=== PATIENT | female | born 1990 | race Caucasian/White ===

== ENCOUNTER 2016-12-06 09:38 | Emergency (ER) | payer OTHER ==
[~2016-12-06] VITALS: Ht 172.7 cm; Wt 79.1 kg
[2016-12-06 09:47] VITALS: TEMP 98.4
[2016-12-06] MEDS ORDERED: NECON 1/35 35 M1 TAB PO (09:50)
[2016-12-06 10:26] VITALS: BP 131/84; PULSE 65
[2016-12-06] MEDS ORDERED: ZOFRAN ODT4 MG PO (11:21)
[2016-12-06] MEDS ORDERED: ANTIVERT 25MG25 MG PO (11:21)
== END 2016-12-06 11:36 | disposition home or self-care (01) ==
LOC: COL.ER 09:38
DX: R42 Dizziness and giddiness (principal)

== ENCOUNTER 2016-12-18 07:39 | Emergency (ER) | payer OTHER ==
[~2016-12-18] VITALS: Ht 172.7 cm; Wt 79.5 kg
[~2016-12-18 07:39] MED LIST: ANTIVERT 25MG25 MG PO; NECON 1/35 35 M1 TAB PO; ZOFRAN ODT4 MG PO
[2016-12-18 07:42] VITALS: BP 113/76; PULSE 96; TEMP 97.7
[2016-12-18] MEDS ORDERED: ATARAX 25MG25 MG/TAB PO (08:02)
[2016-12-18] MEDS ORDERED: PREDNISONE10 MG PO (08:02)
== END 2016-12-18 08:23 | disposition home or self-care (01) ==
LOC: COL.ER 07:39
DX: L50.9 Urticaria, unspecified (principal)